=== PATIENT | female | born 1930 | race Caucasian/White ===

== ENCOUNTER 2019-06-29 14:40 | Inpatient (IN) ==
--- NOTE | 2019-06-29 14:58 | Emergency Department Note ---
ED Disposition Clinical Impression: Altered mental status Qualifiers: Altered mental status type: unspecified Qualified Code(s): R41.82 - Altered mental status, unspecified GI bleed Qualifiers: GI bleed type/associated pathology: unspecified gastrointestinal hemorrhage type Qualified Code(s): K92.2 - Gastrointestinal hemorrhage, unspecified Sepsis Qualifiers: Sepsis type: sepsis due to unspecified organism Sepsis acute organ dysfunction status: without acute organ dysfunction Qualified Code(s): A41.9 - Sepsis, unspecified organism Anemia Qualifiers: Anemia type: unspecified type Qualified Code(s): D64.9 - Anemia, unspecified Constipation Qualifiers: Constipation type: unspecified constipation type Qualified Code(s): K59.00 - Constipation, unspecified Disposition: Admitted As Inpatient Condition on Discharge: Fair - Critical Care Critical Care Time: Yes Attestation: On 06/29/19, the high probability of a clinically significant, sudden or life threatening deterioration of the following system(s) required my full and direct attention, intervention and personal management. The time I documented below is in addition to time spent performing reported procedures but includes the following listed in this critical care notation. Total Critical Care Time: 45 Vital system(s) involved:: Circulatory Failure, Central Nervous System, Metabolic Failure, Shock (Hemorrhage) My critical care processes included: Assessment & monitoring of V/S, Initial and Re-exams, Data Review/Interpretation, Coordinating Care, Medication Orders and management, Documentation Medical Decision Making - Xander Inquiry Pt receiving controlled substance: No Vital Signs: 06/29/19 14:39 06/29/19 17:50 06/29/19 19:07 Temperature 98.8 F 98.8 F Temperature Source Oral Oral Pulse Rate 75 Pulse Rate [Right Radial] 96 H 110 H Respiratory Rate 16 18 Blood Pressure 113/56 L Blood Pressure [Right Arm] 118/89 94/55 L Blood Pressure Mean [Right Arm] 98 68 Blood Pressure Source [Right Arm] Automatic Cuff Automatic Cuff Blood Pressure Position [Right Arm] Sitting Sitting 02 Sat by Pulse Oximetry 98 99 Oxygen Delivery Method Room Air Room Air Room Air 06/29/19 19:33 Temperature 98.8 F Temperature Source Oral Pulse Rate Pulse Rate [Right Radial] 57 L Respiratory Rate 19 Blood Pressure Blood Pressure [Right Arm] 95/62 L Blood Pressure Mean [Right Arm] 73 Blood Pressure Source [Right Arm] Automatic Cuff Blood Pressure Position [Right Arm] Supine 02 Sat by Pulse Oximetry 95 Oxygen Delivery Method Room Air - Lab Data Lab results reviewed: Yes: I reviewed the patient's lab results. Lab Results 06/29/19 14:45: WBC 14.7 H, RBC 2.27 L, Hgb 7.8 L*, Hct 24.9 L, MCV 110.1 H, MCH 34.4 H, MCHC 31.2 L, RDW 12.3, Plt Count 146, MPV 9.6, Neut % (Auto) 78.9, Lymph % (Auto) 17.9, [place] % (Auto) 3.0, Eos % (Auto) 0.1, Baso % (Auto) 0.1, Neut # (Auto) 11.6 H, Lymph # (Auto) 2.6, [place] # (Auto) 0.4, Eos # (Auto) 0.0, Baso # (Auto) 0.0 06/29/19 14:45: Sodium 144, Potassium 6.0 H, Chloride 108 H, Carbon Dioxide 19 L , Anion Gap 23.0 H, BUN 79 H, Creatinine 2.43 H, Estimated Creat Clear 13, Estimated GFR 19 L*, Est GFR ( Amer) 23 L, Glucose 209 H, Calcium 9.4, Total Bilirubin 0.4, AST 32, ALT 16, Alkaline Phosphatase 28 L, Troponin I < 0.02, Total Protein 5.4 L, Albumin 2.8 L, Globulin 2.6, Albumin/Globulin Ratio 1.1 06/29/19 14:45: Lactate 7.8 H 06/29/19 16:32: Blood Type A Positive, Antibody Screen Negative, Crossmatch (A HG) See Detail 06/29/19 16:32: PT 11.7, INR 1.13 H 06/29/19 17:00: Urine Color Yellow, Urine Appearance Clear, Urine pH 5.0, Ur Specific [place] 1.025, Urine Protein Negative, Urine Glucose (UA) Negative, Urine Ketones Negative, Urine Blood 2+, Urine Nitrate Negative, Urine Bilirubin Negative, Urine Urobilinogen 0.2, Ur Leukocyte Esterase Negative, Urine RBC 10- 20, Urine WBC 3-5, Ur Squamous Epith Cells 3-5, Urine Bacteria Trace 06/29/19 17:00: Stool Occult Blood Positive A 06/29/19 18:07: Troponin I 0.02 06/29/19 19:06: Sodium 146 H, Potassium 4.1 D, Chloride 111 H, Carbon Dioxide 17 L, Anion Gap 22.1 H, BUN 86 H, Creatinine 2.59 H, Estimated Creat Clear 12, Estimated GFR 17 L*, Est GFR ( Amer) 21 L, Glucose 220 H, Calcium 8.4 L D 06/29/19 19:06: Lactate 7.3 H Result diagrams: 06/29/19 14:45 06/29/19 19:06 Orders (Tests/Meds): ED MEDICATIONS Generic Name Dose Route Start Last Admin Trade Name Freq PRN Reason Stop Dose Admin Acetaminophen 650 mg 06/29/19 20:02 Acetaminophen 325mg Tab PO 07/29/19 20:01 Q4HP PRN As Needed for Fever or Pain Pantoprazole Sodium 80 mg/ 100 mls @ 10 mls/hr 06/29/19 20:02 Sodium Chloride IV 07/02/19 20:01 .Q10H MAGDA Sodium Chloride 250 mls @ 25 mls/hr 06/29/19 20:02 Sod Chlor 0.9% 250ml Bag IV 06/30/19 15:29 .Q10H MAGDA Dextrose/Sodium Chloride 1,000 mls @ 100 mls/hr 06/29/19 20:02 Dextrose 5%-0.45% Nacl Iv Soln IV 07/29/19 20:01 .Q10H MAGDA Sodium Chloride 1,000 mls @ 999 mls/hr 06/29/19 20:02 Sod Chlor 0.9% 1000ml Bag IV 06/29/19 21:02 .Q1H1M MAGDA Insulin Human Lispro 0 unit 06/29/19 20:02 Humalog 100 Units/Ml 3ml Vial (Ssi) SQ 07/29/19 20:01 Q6H [facility] Protocol Ondansetron HCl 4 mg 06/29/19 20:02 Zofran 4mg/2ml Vial IV 07/29/19 20:01 Q8HP PRN Nausea Pantoprazole Sodium 40 mg 06/29/19 20:02 Protonix 40mg Vial IV 06/29/19 20:03 ONCE ONE Sodium Chloride 10 ml 06/29/19 20:02 Sodium Chloride 0.9% 10ml Vial IV 07/29/19 20:01 NEEDED PRN dilute protonix Sodium Chloride 10 ml 06/29/19 20:02 Saline Flush 10ml Syringe IV 07/29/19 20:01 NEEDED PRN Maintain IV Site Discontinued Medications Generic Name Dose Route Start Last Admin Trade Name Chepe PRN Reason Stop Dose Admin Albuterol Sulfate 7.5 mg 06/29/19 16:19 06/29/19 16:58 Albuterol 0.083% 2.5mg/3ml Neb IH 06/29/19 16:20 7.5 mg ONCE ONE Administration Dextrose 50 ml 06/29/19 16:19 06/29/19 18:34 Dextrose 50% 50ml Syringe IVP 06/29/19 16:20 50 ml ONCE ONE Administration Sodium Chloride 1,000 mls @ 999 mls/hr 06/29/19 14:54 06/29/19 14:54 Sod Chlor 0.9% 1000ml Bag IV 06/29/19 15:54 999 mls/hr .Q1H1M ONE Administration Sodium Chloride 250 mls @ 25 mls/hr 06/29/19 15:30 Sod Chlor 0.9% 250ml Bag IV 06/30/19 15:29 .Q10H MAGDA Sodium Chloride 1,000 mls @ 999 mls/hr 06/29/19 18:45 06/29/19 14:54 Sod Chlor 0.9% 1000ml Bag IV 06/29/19 19:45 999 mls/hr .Q1H1M MAGDA Administration Insulin Human Regular 10 unit 06/29/19 16:19 06/29/19 18:34 Humulin R Insulin 100 Units/Ml 10ml Vial IVP 06/29/19 16:20 10 unit ONCE ONE Administration Sodium Polystyrene Sulfonate 15 gm 06/29/19 16:19 06/29/19 18:34 Kayexalate 15gm/60ml Bottle RC 06/29/19 16:20 15 gm ONCE STA Administration ORDERS Category Date Time Status Transfuse RBC's [Red Blood Cells] Stat [facility] 06/29/19 16:32 Results Type and Screen Stat [facility] 06/29/19 16:32 Results Basic Metabolic Panel [facility] 06/30/19 06:00 Ordered Basic Metabolic Panel [facility] 07/01/19 06:00 Ordered Complete Blood Count Auto Diff [facility] 06/30/19 06:00 Ordered Magnesium [facility] 06/30/19 06:00 Ordered Prothrombin Time INR [facility] 06/30/19 06:00 Ordered Troponin I Q6H Lab 06/30/19 04:00 Ordered Blood Culture Stat Micro 06/29/19 14:45 Received ECG Request by /Leticia Routine Y 06/29/19 20:02 Ordered - Physician Consults Physician Consulted: Dr. Scott Time: 17:30 Reason -: Admission Comment/Response: Discussed with Dr. Dudley regarding the patient and plan to get the patient admitted to the floor. - Tissue Perfus/Sepsis Re-Eval Sepsis Re-Evaluation Performed: Yes Date Performed: 06/29/19 Time Performed: 17:00 Altered Mental Status HPI - General Chief Complaint: Altered Mental Status Stated Complaint: AMS Time Seen by Provider: 06/29/19 14:51 Mode of Arrival: EMS Limitations: Altered Mental Status Description of Symptoms (Recalled from ER Triage Doc. by RN): PT BROUGHT IN VIA EMS AFTER FAMILY REPORTS AMS. FAMILY STATES THAT PT NORMALLY GETS OUT OF BED AND DOES FOR HERSELF, BUT THAT PT WASN'T GETTING OUT OF BED THIS AM. DAUGHTER REPORTS THAT PT HAS HAD A HX OF UTI'S AND THIS IS HOW SHE NORMALLY GETS WHEN SHE HAS ONE. PT WAS ABLE TO PROVIDE ME WITH HER NAME AND BDAY UPON REQUEST. - History of Present Illness HPI narrative: 88-year-old female was brought into the emergency department by the EMS for being confused and having altered mental status at home. According to the family members the patient gets confused when she has urinary tract infection. This time it seems to be different. She is not even able to get out of the bed. She was fine until yesterday evening. She is usually able to get out of bed and ambulate well the help of wheel walker. She was not able to do so since this morning. Is not even answering appropriately. She was not talking much. The patient is rolling in the bed and does not answer. Looks very pale and anemic. Patient did have bowel movements but she does not have bowel movements on a daily basis. Usually she is constipated and has bowel movements every 2 to 3 da ys. Her bowel movement was blackish today. The patient had blackish stool most likely due to her iron intake according to the family members. There is no history of head trauma. - Related Data Allergies Allergy/AdvReac Type Severity Reaction Status Date / Time No Known Allergies Allergy Unverified 07/14/17 14:22 [facility] History - Hepatitis A Screen Drug use history?: No High risk sexual behaviors?: No History of sexually transmitted infection?: No Currently employed?: No Childcare worker?: No Do you have indoor plumbing?: Yes Do you have electricity?: Yes Attestation statement:: This patient has been screened for Hepatitis A risk factors. Medical History: Reports:: Cerebrovascular Accident Denies:: Diabetes Mellitus Type 1, Diabetes Mellitus Type 2 - Social History Smoking Status: Never smoker Alcohol Intake: never Occupational Status: retired ROS Obtained: Yes unobtainable due to mental status, Yes other (Unable to get any history from the patient due to altered mental status.) Physical Exam - General General appearance: lethargic, cachectic, other (Pale and anemic patient) - Head Head exam: atraumatic, normocephalic - Eye Eye exam: Present: normal appearance, PERRL, EOMI - ENT ENT exam: Present: normal exam, normal oropharynx - Neck Neck exam: Present: normal inspection, full ROM, trachea midline - Chest Chest inspection: Present: normal inspection, symmetric chest wall rise - Respiratory Respiratory exam: Present: normal lung sounds bilaterally, other (Patient is tachypneic.). Absent: respiratory distress - Cardiovascular Cardiovascular exam: Present: regular rate, normal rhythm, other - Abdominal Exam Abdominal exam: Present: soft, distention (Mildly distended but no acute tenderness.), normal bowel sounds. Absent: tenderness, guarding, rebound - Extremities Exam Extremities exam: Present: normal inspection, full ROM - Back Exam Back exam: Present: normal inspection, full ROM, other (Baseline status of the back) - Neurological Exam Neurological exam: Present: CN II-XII intact, other (No acute neurological deficit. The patient seems weak and confused. Does not answer any questions. He is not conversing. Rolls in bed and seems to be tachypneic) - Skin Skin exam: Present: warm, dry, pallor
[2019-06-29 15:20] LABS: Basophils % 0.1 % (0.1-2.0); Eosinophils % 0.1 % (0.1-12.0); Hematocrit 24.9 % (37.0-47.0); Lymphocytes # 2.6 K/mm3 (0.7-4.5); Lymphocytes % 17.9 % (10-50); Mean Corpuscular HGB Conc 31.2 g/dL (31.8-35.4); Mean Corpuscular Volume 110.1 fl (81-99); Mean Platelet Volume 9.6 fl (7.4-10.4); Monocytes # 0.4 K/mm3 (0.1-1.0); Neutrophils # 11.6 K/mm3 (1.8-7.8); Neutrophils % 78.9 % (37.0-80.0); Platelet Count 146 K/mm3 (142-424); Red Blood Count 2.27 M/mm3 (4.20-5.40); Red Cell Distribution Width 12.3 % (11.5-17.5); White Blood Count 14.7 K/mm3 (4.8-10.8)
[2019-06-29 15:22] LABS: Hemoglobin 7.8 g/dL (12.2-16.2)
[2019-06-29 15:44] LABS: Alanine Aminotransferase 16 U/L (12-78); Albumin Level 2.8 gm/dL (3.4-5.0); Albumin/Globulin Ratio 1.1 (1.1-1.8); Alkaline Phosphatase 28 U/L (46-116); Aspartate Amino Transferase 32 U/L (15-37); Bilirubin,Total 0.4 mg/dL (0.2-1.0); Calcium 9.4 mg/dL (8.5-10.1); Carbon Dioxide 19 mmol/L (21.0-32.0); Chloride 108 mmol/L (98-107); Globulin 2.6 gm/dl (1.3-3.2); Glucose 209 mg/dL (74-106); Sodium 144 mmol/L (136-145); Total Protein,Serum 5.4 gm/dL (6.4-8.2)
[2019-06-29 15:48] LABS: Blood Urea Nitrogen 79 mg/dL (7-18)
[2019-06-29 16:49] LABS: INR 1.13 (0.9-1.1); Prothrombin Time 11.7 seconds (9.4-11.8)
[2019-06-29 17:14] LABS: Microscopic, Urine URINE MICROSCOPIC (MICROSCOPIC)
[2019-06-29 17:25] LABS: Appearance,Urine CLEAR (Clear); Bilirubin,Urine Negative (Negative); Blood, Urine 2+ (Negative); Color,Urine YELLOW (Yellow); Glucose,Urine (UA) Negative (Negative); Ketones,Urine Negative (Negative); Leukocyte Esterase,Urine Negative (Negative); Protein,Urine Negative (Negative); Specific Gravity, Urine 1.025 (1.005-1.030); Urobilinogen,Urine 0.2 EU/dl (0.2)
[2019-06-29 17:47] LABS: Bacteria,Urine Trace /lpf
[2019-06-29 19:45] LABS: Anion Gap 22.1 mEq/L (5-15)
[2019-06-29 20:30] LABS: Calcium 8.4 mg/dL (8.5-10.1)
[2019-06-30 04:33] LABS: Anion Gap 24.4 mEq/L (5-15); Calcium 8.4 mg/dL (8.5-10.1)
[2019-06-30 05:44] LABS: Basophils % 0.2 % (0.1-2.0); Eosinophils # 0.1 K/mm3 (0.0-0.4); Eosinophils % 0.4 % (0.1-12.0); Hematocrit 39.8 % (37.0-47.0); Lymphocytes # 1.8 K/mm3 (0.7-4.5); Lymphocytes % 10.7 % (10-50); Mean Corpuscular HGB Conc 32.7 g/dL (31.8-35.4); Mean Corpuscular Volume 99.6 fl (81-99); Mean Platelet Volume 9.3 fl (7.4-10.4); Monocytes # 1.3 K/mm3 (0.1-1.0); Monocytes % 7.9 % (1.7-9.3); Neutrophils # 13.2 K/mm3 (1.8-7.8); Neutrophils % 80.8 % (37.0-80.0); Platelet Count 88 K/mm3 (142-424); Red Cell Distribution Width 14.8 % (11.5-17.5); White Blood Count 16.3 K/mm3 (4.8-10.8)
[2019-06-30 05:55] LABS: INR 1.05 (0.9-1.1); Prothrombin Time 10.9 seconds (9.4-11.8)
--- NOTE | 2019-06-30 07:45 | Pharmacy Consult Notes ---
[facility] Pharmacy VTE Monitoring - Patient Demographics Admission date: 06/29/19 Report Date: 06/30/19 Time: 07:45 Allergies/Adverse Reactions: Patient Allergies No Known Allergies Allergy (Unverified 07/14/17 14:22) Height: 1.6 m Weight: 51.88 kg Patient Problems: Current Active Problems (This Medical Record has been edited. Action required.) Altered mental status (Acute) GI bleed (Acute) Sepsis (Acute) Anemia (Acute) Constipation (Acute) - VTE Risk Labs: VTE Related Lab Results Hgb 13.0 g/dL (12.2-16.2) D 06/30/19 05:35 Hct 39.8 % (37.0-47.0) 06/30/19 05:35 Plt Count 88 K/mm3 (142-424) L D 06/30/19 05:35 PT 10.9 seconds (9.4-11.8) 06/30/19 05:35 INR 1.05 (0.9-1.1) 06/30/19 05:35 BUN 95 mg/dL (7-18) H 06/30/19 04:07 Creatinine 2.79 mg/dL (0.55-1.02) H 06/30/19 04:07 Estimated Creat Clear 12 mL/min (50-200) 06/30/19 04:07 Was VTE Risk Assessment Performed: Yes VTE Score: 3 VTE Risk Level: Low Risk Clinical Trial Participant: No - Prophylaxis VTE Prophylaxis Ordered?: Yes Types of VTE Prophylaxis: TEDS Knee High
--- NOTE | 2019-06-30 07:57 | History & Physical Report ---
*Admission Date: 06/29/19 *Chief complaint: GI bleed *History of present illness: 88-year-old female with history of TIA and hypertension presented to the emergency department after she was found to be confused early yesterday morning. Her noticed that around 3:30 AM she did not seem to be acting like herself. He contacted her daughter. Her daughter came and assessed her and noticed that not only was the patient confused but she began having frequent black stools which is atypical for the patient. While she does take iron for chronic anemia she usually has a bowel movement every 2 to 3 days. The daughter recognized that the stool appeared as if there was blood in it and also "smelled as if there was blood in it". That was when the patient was brought to the hospital. Patient underwent evaluation and was found to be anemic. She was admitted with a diagnosis of an upper GI bleed and transfused 2 units of packed red blood cells. Overnight patient had a robust response to the 2 units of packed red blood cells with hemoglobin rising from 7.8 to above 13. Patient has been on a Protonix drip since admission. This morning she remains confused and minimally interactive with both myself and family. History is taken completely from the family. [facility] History I have reviewed the patient's past medical history: Yes Medical History: Reports:: Cerebrovascular Accident, Hyperlipidemia, Hypertension Denies:: Cancer, Diabetes Mellitus Type 1, Diabetes Mellitus Type 2, MRSA *Have you ever received a pneumonia vaccine?: Yes *Have you received a flu vaccine this season?: No Other Medical History: Reports: Anemia, Arthritis, Cataracts Other Surgeries: Yes: Hysterectomy-Total Amputation: No Fractures: No - *Social History Educational Level: Completed High School Smoking Status: Never smoker Alcohol Intake: never *Occupational Status:: retired Household Members: spouse *Travel in the last 8 weeks: None Family Hx:: Cancer, Stroke Review of Systems - Review of Systems Review of systems:: unable to obtain - Constitutional Denies body ache(s), Denies chills Meds Allergies Allergy/AdvReac Type Severity Reaction Status Date / Time No Known Allergies Allergy Unverified 07/14/17 14:22 Exam Vital signs and Labs for Last 24 Hours: Temp Pulse Resp BP Pulse Ox 98.4 F 117 H 24 131/84 94 L 06/30/19 05:00 06/30/19 05:00 06/30/19 05:00 06/30/19 05:00 06/30/19 02:35 Laboratory Results - last 24 hr 06/29/19 14:45: WBC 14.7 H, RBC 2.27 L, Hgb 7.8 L*, Hct 24.9 L, MCV 110.1 H, MCH 34.4 H, MCHC 31.2 L, RDW 12.3, Plt Count 146, MPV 9.6, Neut % (Auto) 78.9, Lymph % (Auto) 17.9, [place] % (Auto) 3.0, Eos % (Auto) 0.1, Baso % (Auto) 0.1, Neut # (Auto) 11.6 H, Lymph # (Auto) 2.6, [place] # (Auto) 0.4, Eos # (Auto) 0.0, Baso # (Auto) 0.0 06/29/19 14:45: Sodium 144, Potassium 6.0 H, Chloride 108 H, Carbon Dioxide 19 L , Anion Gap 23.0 H, BUN 79 H, Creatinine 2.43 H, Estimated Creat Clear 13, Estim ated GFR 19 L*, Est GFR ( Amer) 23 L, Glucose 209 H, Calcium 9.4, Total Bilirubin 0.4, AST 32, ALT 16, Alkaline Phosphatase 28 L, Troponin I < 0.02, Total Protein 5.4 L, Albumin 2.8 L, Globulin 2.6, Albumin/Globulin Ratio 1.1 06/29/19 14:45: Lactate 7.8 H 06/29/19 16:32: Blood Type A Positive, Antibody Screen Negative, Crossmatch (AHG) See Detail 06/29/19 16:32: PT 11.7, INR 1.13 H 06/29/19 17:00: Urine Color Yellow, Urine Appearance Clear, Urine pH 5.0, Ur Specific [place] 1.025, Urine Protein Negative, Urine Glucose (UA) Negative, Urine Ketones Negative, Urine Blood 2+, Urine Nitrate Negative, Urine Bilirubin Negative, Urine Urobilinogen 0.2, Ur Leukocyte Esterase Negative, Urine RBC 10- 20, Urine WBC 3-5, Ur Squamous Epith Cells 3-5, Urine Bacteria Trace 06/29/19 17:00: Stool Occult Blood Positive A 06/29/19 18:07: Troponin I 0.02 06/29/19 19:06: Sodium 146 H, Potassium 4.1 D, Chloride 111 H, Carbon Dioxide 17 L, Anion Gap 22.1 H, BUN 86 H, Creatinine 2.59 H, Estimated Creat Clear 12, Estimated GFR 17 L*, Est GFR ( Amer) 21 L, Glucose 220 H, Calcium 8.4 L D 06/29/19 19:06: Lactate 7.3 H 06/29/19 21:44: Troponin I 0.07 H 06/29/19 21:44: Lactate 5.8 H 06/30/19 00:17: POC Glucose 155 H 06/30/19 04:07: Troponin I 0.20 H 06/30/19 04:07: Sodium 145, Potassium 4.4, Chloride 110 H, Carbon Dioxide 15 L, Anion Gap 24.4 H, BUN 95 H, Creatinine 2.79 H, Estimated Creat Clear 12, Estimated GFR 16 L*, Est GFR ( Amer) 19 L*, Glucose 177 H, Calcium 8.4 L, Magnesium 1.6 06/30/19 05:35: WBC 16.3 H, RBC 4.00 L D, Hgb 13.0 D, Hct 39.8, MCV 99.6 H, MCH 32.6 H, MCHC 32.7, RDW 14.8, Plt Count 88 L D, MPV 9.3, Neut % (Auto) 80.8 H, Lymph % (Auto) 10.7, [place] % (Auto) 7.9, Eos % (Auto) 0.4, Baso % (Auto) 0.2, Neut # (Auto) 13.2 H, Lymph # (Auto) 1.8, [place] # (Auto) 1.3 H, Eos # (Auto) 0.1, Baso # (Auto) 0.0 06/30/19 05:35: PT 10.9, INR 1.05 I & O for Last 24 hours: Intake & Output 06/27/19 06/28/19 06/29/19 06/30/19 11:59 11:59 11:59 11:59 Intake Total 397 / 397 Balance 397 / 397 Weight 114 lb 6 oz Narrative: Patient is not in any distress but is laying on her left side. She does not respond to my voice. When speaking with her daughter the patient did become a little more alert but could not communicate with either myself or her daughter. HEENT exam is grossly normal. Lungs are clear. Heart has a regular rate and rhythm. Abdomen has mild epigastric tenderness. Bowel sounds are present. Lower extremities have trace edema. Neurologically patient is difficult to assess. She will make eye contact but does not speak. She is witnessed moving her right arm and leg but was difficult to turn. Assessment and Plan (1) GI bleed Current visit: Yes Status: Acute Qualifiers: GI bleed type/associated pathology: unspecified gastrointestinal hemorrhage type Qualified Code(s): K92.2 - Gastrointestinal hemorrhage, unspecified Category: Medical Code(s): K92.2 - Gastrointestinal hemorrhage, unspecified (2) Anemia due to blood loss, acute Current visit: Yes Status: Acute Category: Medical Code(s): D62 - Acute posthemorrhagic anemia (3) History of stroke Current visit: Yes Status: Acute Category: Medical Code(s): Z86.73 - Personal history of transient ischemic attack (TIA), and cerebral infarction without residual deficits - Assessment and plan all Dx Assessment and Plan for all problems:: 1. Continue Protonix drip. Surgical consult. Patient will need EGD. At present she is stable and I plan on repeating her H&H every 6 hours for today 2. Continue IV fluids.
[2019-06-30 08:06] LABS: Lymphocytes % 18 % (10-50); Monocytes % 9 % (2-9); Neutrophils % 65 % (42-76); RBC Morphology Normal; Total Cells Counted 100
[2019-06-30 11:23] LABS: Basophils % 0.4 % (0.1-2.0); Eosinophils # 0.1 K/mm3 (0.0-0.4); Eosinophils % 0.6 % (0.1-12.0); Hematocrit 42.1 % (37.0-47.0); Hemoglobin 14.1 g/dL (12.2-16.2); Lymphocytes # 1.5 K/mm3 (0.7-4.5); Lymphocytes % 17.3 % (10-50); Mean Corpuscular HGB Conc 33.6 g/dL (31.8-35.4); Mean Corpuscular Volume 98.8 fl (81-99); Mean Platelet Volume 9.4 fl (7.4-10.4); Monocytes # 0.9 K/mm3 (0.1-1.0); Monocytes % 9.9 % (1.7-9.3); Neutrophils # 6.2 K/mm3 (1.8-7.8); Neutrophils % 71.9 % (37.0-80.0); Platelet Count 96 K/mm3 (142-424); Red Blood Count 4.26 M/mm3 (4.20-5.40); Red Cell Distribution Width 15.3 % (11.5-17.5); White Blood Count 8.6 K/mm3 (4.8-10.8)
--- NOTE | 2019-06-30 13:52 | Consult Report ---
*Admission Date: 06/29/19 *Reason for consult:: Upper gastrointestinal hemorrhage *History of present illness: This is an 88-year-old female seen in consultation from Dr. Zhang for evaluation regarding upper gastrointestinal hemorrhage. Please see truncated HPI from admission H&P forwarded below. From H&P: 88-year-old female with history of TIA and hypertension presented to the emergency department after she was found to be confused early yesterday morning...she began having frequent black stools which is atypical for the patient...the patient was brought to the hospital...underwent evaluation and was found to be anemic. She was admitted with a diagnosis of an upper GI bleed and transfused 2 units of packed red blood cells. Overnight patient had a robust response to the 2 units of packed red blood cells with hemoglobin rising from 7.8 to above 13. Patient has been on a Protonix drip since admission. Review of Systems - Constitutional Denies fever(s) - Eyes Denies discharge - *Gastrointestinal Reports black, tarry stools - *Neurologic Reports confusion [facility] History Medical History: Reports:: Cerebrovascular Accident, Hyperlipidemia, Hypertension Denies:: Cancer, Diabetes Mellitus Type 1, Diabetes Mellitus Type 2, MRSA *Have you ever received a pneumonia vaccine?: Yes *Have you received a flu vaccine this season?: No Other Medical History: Reports: Anemia, Arthritis, Cataracts Other Surgeries: Yes: Hysterectomy-Total Amputation: No Fractures: No - *Social History Educational Level: Completed High School Smoking Status: Never smoker Alcohol Intake: never *Occupational Status:: retired Household Members: spouse *Travel in the last 8 weeks: None Family Hx:: Cancer, Stroke Meds Home Medications Medication Instructions Recorded Confirmed Type Atorvastatin Calcium [Atorvastatin 10 mg PO HS 06/30/19 06/30/19 History 10mg Tab] Citalopram Hydrobromide 20 mg PO DAILY 06/30/19 06/30/19 History [Citalopram HBr] Clopidogrel Bisulfate [Plavix 75mg 75 mg PO DAILY 06/30/19 06/30/19 History Tab] carvediloL [Carvedilol 25mg Tab] 25 mg PO BID 06/30/19 06/30/19 History lisinopriL [Lisinopril 10mg Tab] 10 mg PO DAILY 06/30/19 06/30/19 History Allergies Allergy/AdvReac Type Severity Reaction Status Date / Time No Known Allergies Allergy Unverified 07/14/17 14:22 Exam Vital signs and Labs for Last 24 Hours: Temp Pulse Resp BP Pulse Ox 97.1 F L 83 20 113/65 92 L 06/30/19 11:15 06/30/19 11:15 06/30/19 11:15 06/30/19 11:15 06/30/19 11:15 Laboratory Results - last 24 hr 06/29/19 14:45: WBC 14.7 H, RBC 2.27 L, Hgb 7.8 L*, Hct 24.9 L, MCV 110.1 H, MCH 34.4 H, MCHC 31.2 L, RDW 12.3, Plt Count 146, MPV 9.6, Neut % (Auto) 78.9, Lymph % (Auto) 17.9, [place] % (Auto) 3.0, Eos % (Auto) 0.1, Baso % (Auto) 0.1, Neut # (Auto) 11.6 H, Lymph # (Auto) 2.6, [place] # (Auto) 0.4, Eos # (Auto) 0.0, Baso # (Auto) 0.0 06/29/19 14:45: Sodium 144, Potassium 6.0 H, Chloride 108 H, Carbon Dioxide 19 L , Anion Gap 23.0 H, BUN 79 H, Creatinine 2.43 H, Estimated Creat Clear 13, Estimated GFR 19 L*, Est GFR ( Amer) 23 L, Glucose 209 H, Calcium 9.4, Total Bilirubin 0.4, AST 32, ALT 16, Alkaline Phosphatase 28 L, Troponin I < 0.0 2, Total Protein 5.4 L, Albumin 2.8 L, Globulin 2.6, Albumin/Globulin Ratio 1.1 06/29/19 14:45: Lactate 7.8 H 06/29/19 16:32: Blood Type A Positive, Antibody Screen Negative, Crossmatch (AHG) See Detail 06/29/19 16:32: PT 11.7, INR 1.13 H 06/29/19 17:00: Urine Color Yellow, Urine Appearance Clear, Urine pH 5.0, Ur Specific [place] 1.025, Urine Protein Negative, Urine Glucose (UA) Negative, Urine Ketones Negative, Urine Blood 2+, Urine Nitrate Negative, Urine Bilirubin Negative, Urine Urobilinogen 0.2, Ur Leukocyte Esterase Negative, Urine RBC 10- 20, Urine WBC 3-5, Ur Squamous Epith Cells 3-5, Urine Bacteria Trace 06/29/19 17:00: Stool Occult Blood Positive A 06/29/19 18:07: Troponin I 0.02 06/29/19 19:06: Sodium 146 H, Potassium 4.1 D, Chloride 111 H, Carbon Dioxide 17 L, Anion Gap 22.1 H, BUN 86 H, Creatinine 2.59 H, Estimated Creat Clear 12, Estimated GFR 17 L*, Est GFR ( Amer) 21 L, Glucose 220 H, Calcium 8.4 L D 06/29/19 19:06: Lactate 7.3 H 06/29/19 21:44: Troponin I 0.07 H 06/29/19 21:44: Lactate 5.8 H 06/30/19 00:17: POC Glucose 155 H 06/30/19 04:07: Troponin I 0.20 H 06/30/19 04:07: Sodium 145, Potassium 4.4, Chloride 110 H, Carbon Dioxide 15 L, Anion Gap 24.4 H, BUN 95 H, Creatinine 2.79 H, Estimated Creat Clear 12, Estimated GFR 16 L*, Est GFR ( Amer) 19 L*, Glucose 177 H, Calcium 8.4 L, Magnesium 1.6 06/30/19 05:35: WBC 16.3 H, RBC 4.00 L D, Hgb 13.0 D, Hct 39.8, MCV 99.6 H, MCH 32.6 H, MCHC 32.7, RDW 14.8, Plt Count 88 L D, MPV 9.3, Neut % (Auto) 80.8 H, Lymph % (Auto) 10.7, [place] % (Auto) 7.9, Eos % (Auto) 0.4, Baso % (Auto) 0.2, Neut # (Auto) 13.2 H, Lymph # (Auto) 1.8, [place] # (Auto) 1.3 H, Eos # (Auto) 0.1, Baso # (Auto) 0.0, Total Counted 100, Neutrophils % (Manual) 65, Band Neutrophils % 6.0, Lymphocytes % (Manual) 18, Monocytes % (Manual) 9, Metamye locytes % 2.0 H, Platelet Estimate Moderate decrease, RBC Morphology Normal 06/30/19 05:35: PT 10.9, INR 1.05 06/30/19 11:10: WBC 8.6 D, RBC 4.26, Hgb 14.1, Hct 42.1, MCV 98.8, MCH 33.2 H, MCHC 33.6, RDW 15.3, Plt Count 96 L, MPV 9.4, Neut % (Auto) 71.9, Lymph % (Auto) 17.3, [place] % (Auto) 9.9 H, Eos % (Auto) 0.6, Baso % (Auto) 0.4, Neut # (Auto) 6.2, Lymph # (Auto) 1.5, [place] # (Auto) 0.9, Eos # (Auto) 0.1, Baso # (Auto) 0.0 06/30/19 11:10: Troponin I 0.22 H I & O for Last 24 hours: Intake & Output 06/28/19 06/29/19 06/30/19 07/01/19 11:59 11:59 11:59 11:59 Intake Total 397 / 397 0 / 0 Balance 397 / 397 0 / 0 Weight 114 lb 6 oz - Constitutional no acute distress - *Routine Respiratory Exam Absent: respiratory distress - *Routine Cardiovascular Exam Present: RRR - *Routine Neurological Exam Absent: oriented X3 Results - Labs 06/30/19 11:10 06/30/19 04:07 Laboratory Results - last 24 hr 06/29/19 14:45: WBC 14.7 H, RBC 2.27 L, Hgb 7.8 L*, Hct 24.9 L, MCV 110.1 H, MCH 34.4 H, MCHC 31.2 L, RDW 12.3, Plt Count 146, MPV 9.6, Neut % (Auto) 78.9, Lymph % (Auto) 17.9, [place] % (Auto) 3.0, Eos % (Auto) 0.1, Baso % (Auto) 0.1, Neut # (Auto) 11.6 H, Lymph # (Auto) 2.6, [place] # (Auto) 0.4, Eos # (Auto) 0.0, Baso # (Auto) 0.0 06/29/19 14:45: Sodium 144, Potassium 6.0 H, Chloride 108 H, Carbon Dioxide 19 L , Anion Gap 23.0 H, BUN 79 H, Creatinine 2.43 H, Estimated Creat Clear 13, Estimated GFR 19 L*, Est GFR ( Amer) 23 L, Glucose 209 H, Calcium 9.4, Total Bilirubin 0.4, AST 32, ALT 16, Alkaline Phosphatase 28 L, Troponin I < 0.02, Total Protein 5.4 L, Albumin 2.8 L, Globulin 2.6, Albumin/Globulin Ratio 1.1 06/29/19 14:45: Lactate 7.8 H 06/29/19 16:32: Blood Type A Positive, Antibody Screen Negative, Crossmatch (AHG) See Detail 06/29/19 16:32: PT 11.7, INR 1.13 H 06/29/19 17:00: Urine Color Yellow, Urine Appearance Clear, Urine pH 5.0, Ur Specific [place] 1.025, Urine Protein Negative, Urine Glucose (UA) Negative, Urine Ketones Negative, Urine Blood 2+, Urine Nitrate Negative, Urine Bilirubin Negative, Urine Urobilinogen 0.2, Ur Leukocyte Esterase Negative, Urine RBC 10- 20, Urine WBC 3-5, Ur Squamous Epith Cells 3-5, Urine Bacteria Trace 06/29/19 17:00: Stool Occult Blood Positive A 06/29/19 18:07: Troponin I 0.02 06/29/19 19:06: Sodium 146 H, Potassium 4.1 D, Chloride 111 H, Carbon Dioxide 17 L, Anion Gap 22.1 H, BUN 86 H, Creatinine 2.59 H, Estimated Creat Clear 12, Estimated GFR 17 L*, Est GFR ( Amer) 21 L, Glucose 220 H, Calcium 8.4 L D 06/29/19 19:06: Lactate 7.3 H 06/29/19 21:44: Troponin I 0.07 H 06/29/19 21:44: Lactate 5.8 H 06/30/19 00:17: POC Glucose 155 H 06/30/19 04:07: Troponin I 0.20 H 06/30/19 04:07: Sodium 145, Potassium 4.4, Chloride 110 H, Carbon Dioxide 15 L, Anion Gap 24.4 H, BUN 95 H, Creatinine 2.79 H, Estimated Creat Clear 12, Estimated GFR 16 L*, Est GFR ( Amer) 19 L*, Glucose 177 H, Calcium 8.4 L, Magnesium 1.6 06/30/19 05:35: WBC 16.3 H, RBC 4.00 L D, Hgb 13.0 D, Hct 39.8, MCV 99.6 H, MCH 32.6 H, MCHC 32.7, RDW 14.8, Plt Count 88 L D, MPV 9.3, Neut % (Auto) 80.8 H, Lymph % (Auto) 10.7, [place] % (Auto) 7.9, Eos % (Auto) 0.4, Baso % (Auto) 0.2, Neut # (Auto) 13.2 H, Lymph # (Auto) 1.8, [place] # (Auto) 1.3 H, Eos # (Auto) 0.1, Baso # (Auto) 0.0, Total Counted 100, Neutrophils % (Manual) 65, Band Neutrophils % 6.0, Lymphocytes % (Manual) 18, Monocytes % (Manual) 9, Metamyelocytes % 2.0 H, Platelet Estimate Moderate decrease, RBC Morphology Normal 06/30/19 05:35: PT 10.9, INR 1.05 06/30/19 11:10: WBC 8.6 D, RBC 4.26, Hgb 14.1, Hct 42.1, MCV 98.8, MCH 33.2 H, MCHC 33.6, RDW 15.3, Plt Count 96 L, MPV 9.4, Neut % (Auto) 71.9, Lymph % (Auto) 17.3, [place] % (Auto) 9.9 H, Eos % (Auto) 0.6, Baso % (Auto) 0.4, Neut # (Auto) 6.2, Lymph # (Auto) 1.5, [place] # (Auto) 0.9, Eos # (Auto) 0.1, Baso # (Auto) 0.0 06/30/19 11:10: Troponin I 0.22 H Assessment and Plan (1) GI bleed Current visit: Yes Status: Acute Qualifiers: GI bleed type/associated pathology: unspecified gastrointestinal hemorrhage type Qualified Code(s): K92.2 - Gastrointestinal hemorrhage, unspecified Category: Medical Code(s): K92.2 - Gastrointestinal hemorrhage, unspecified The patient has multiple comorbid conditions. She is currently stable with no definitive evidence of ongoing hemorrhage. I have had a long discussion with the patient's and her daughter concerning the risks and benefits of endoscopic evaluation. The family wishes to "hold off for now". They state that they may reconsider if she develops evidence of active/severe hemorrhage. She will continue her proton pump inhibitor and her Plavix will continue to be held for now. Serial hemoglobin/hematocrit ongoing. (2) Anemia due to blood loss, acute Current visit: Yes Status: Acute Category: Medical Code(s): D62 - Acute posthemorrhagic anemia (3) History of stroke Current visit: Yes Status: Acute Category: Medical Code(s): Z86.73 - Personal history of transient ischemic attack (TIA), and cerebral infarction without residual deficits
[2019-06-30 17:22] LABS: Basophils % 0.4 % (0.1-2.0); Eosinophils % 0.5 % (0.1-12.0); Hematocrit 39.8 % (37.0-47.0); Lymphocytes # 1.6 K/mm3 (0.7-4.5); Lymphocytes % 20.2 % (10-50); Mean Corpuscular HGB Conc 32.7 g/dL (31.8-35.4); Mean Corpuscular Volume 98.4 fl (81-99); Mean Platelet Volume 9.5 fl (7.4-10.4); Monocytes # 1.1 K/mm3 (0.1-1.0); Monocytes % 13.8 % (1.7-9.3); Neutrophils # 5.1 K/mm3 (1.8-7.8); Neutrophils % 65.2 % (37.0-80.0); Platelet Count 113 K/mm3 (142-424); Red Blood Count 4.04 M/mm3 (4.20-5.40); Red Cell Distribution Width 15.5 % (11.5-17.5); White Blood Count 7.8 K/mm3 (4.8-10.8)
[2019-06-30 23:22] LABS: Basophils % 0.2 % (0.1-2.0); Eosinophils % 0.5 % (0.1-12.0); Hematocrit 37.3 % (37.0-47.0); Hemoglobin 12.6 g/dL (12.2-16.2); Lymphocytes # 1.1 K/mm3 (0.7-4.5); Lymphocytes % 20.3 % (10-50); Mean Corpuscular HGB Conc 33.7 g/dL (31.8-35.4); Mean Corpuscular Volume 98.9 fl (81-99); Mean Platelet Volume 9.9 fl (7.4-10.4); Monocytes # 0.9 K/mm3 (0.1-1.0); Monocytes % 15.5 % (1.7-9.3); Neutrophils # 3.5 K/mm3 (1.8-7.8); Neutrophils % 63.5 % (37.0-80.0); Platelet Count 85 K/mm3 (142-424); Red Blood Count 3.77 M/mm3 (4.20-5.40); Red Cell Distribution Width 15.5 % (11.5-17.5); White Blood Count 5.6 K/mm3 (4.8-10.8)
[2019-07-01 06:58] LABS: Anion Gap 20.5 mEq/L (5-15); Basophils % 0.2 % (0.1-2.0); Calcium 7.7 mg/dL (8.5-10.1); Hematocrit 35.3 % (37.0-47.0); Hemoglobin 11.7 g/dL (12.2-16.2); Lymphocytes # 0.8 K/mm3 (0.7-4.5); Mean Corpuscular HGB Conc 33.2 g/dL (31.8-35.4); Mean Corpuscular Volume 99.2 fl (81-99); Mean Platelet Volume 9.6 fl (7.4-10.4); Monocytes # 0.5 K/mm3 (0.1-1.0); Monocytes % 13.2 % (1.7-9.3); Neutrophils # 2.6 K/mm3 (1.8-7.8); Neutrophils % 66.6 % (37.0-80.0); Platelet Count 95 K/mm3 (142-424); Red Blood Count 3.56 M/mm3 (4.20-5.40); Red Cell Distribution Width 15.6 % (11.5-17.5); White Blood Count 3.9 K/mm3 (4.8-10.8)
--- NOTE | 2019-07-01 06:58 | Progress Note ---
Subjective Narrative: Resting. Per nursing report she has had no additional melena over the past shift. Exam Vital signs and Labs for Last 24 Hours: Temp Pulse Resp BP Pulse Ox 98.4 F 127 H 18 130/77 96 07/01/19 04:00 07/01/19 04:00 07/01/19 04:00 07/01/19 04:00 07/01/19 04:00 Laboratory Results - last 24 hr 06/30/19 05:35: Total Counted 100, Neutrophils % (Manual) 65, Band Neutrophils % 6.0, Lymphocytes % (Manual) 18, Monocytes % (Manual) 9, Metamyelocytes % 2.0 H, Platelet Estimate Moderate decrease, RBC Morphology Normal 06/30/19 11:10: WBC 8.6 D, RBC 4.26, Hgb 14.1, Hct 42.1, MCV 98.8, MCH 33.2 H, MCHC 33.6, RDW 15.3, Plt Count 96 L, MPV 9.4, Neut % (Auto) 71.9, Lymph % (Auto) 17.3, [place] % (Auto) 9.9 H, Eos % (Auto) 0.6, Baso % (Auto) 0.4, Neut # (Auto) 6.2, Lymph # (Auto) 1.5, [place] # (Auto) 0.9, Eos # (Auto) 0.1, Baso # (Auto) 0.0 06/30/19 11:10: Troponin I 0.22 H 06/30/19 11:18: POC Glucose 243 H 06/30/19 16:41: POC Glucose 179 H 06/30/19 17:15: WBC 7.8, RBC 4.04 L, Hgb 13.0, Hct 39.8, MCV 98.4, MCH 32.2 H, MCHC 32.7, RDW 15.5, Plt Count 113 L, MPV 9.5, Neut % (Auto) 65.2, Lymph % (Auto) 20.2, [place] % (Auto) 13.8 H, Eos % (Auto) 0.5, Baso % (Auto) 0.4, Neut # (Auto) 5.1, Lymph # (Auto) 1.6, [place] # (Auto) 1.1 H, Eos # (Auto) 0.0, Baso # (Auto) 0.0 06/30/19 20:20: POC Glucose 211 H 06/30/19 23:10: WBC 5.6 D, RBC 3.77 L, Hgb 12.6, Hct 37.3, MCV 98.9, MCH 33.4 H , MCHC 33.7, RDW 15.5, Plt Count 85 L, MPV 9.9, Neut % (Auto) 63.5, Lymph % (Auto) 20.3, [place] % (Auto) 15.5 H, Eos % (Auto) 0.5, Baso % (Auto) 0.2, Neut # (Auto) 3.5, Lymph # (Auto) 1.1, [place] # (Auto) 0.9, Eos # (Auto) 0.0, Baso # (Auto) 0.0 07/01/19 06:28: POC Glucose 233 H I & O for Last 24 hours: Intake & Output 06/28/19 06/29/19 06/30/19 07/01/19 11:59 11:59 11:59 11:59 Intake Total 397 / 397 883 / 883 Output Total 700 / 700 Balance 397 / 397 183 / 183 Weight 114 lb 6 oz 114 lb 6 oz - Constitutional no acute distress - *Routine Respiratory Exam Absent: respiratory distress - *Routine Cardiovascular Exam Present: tachycardia Progress Note: A&P (1) GI bleed Status: Acute Assessment and plan: Currently resting with no definitive evidence of ongoing hemorrhage. The patient's family remains consistent in their wishes for her to not undergo any procedure requiring sedation. Although she has had a slight decline in her hemoglobin it remains "higher than expected" status post a 2 unit transfusion. Continue ongoing monitoring with serial hemoglobin/hematocrit (timing of serial hemoglobin/hematocrit likely be extended) Diet as per primary service Current Visit: Yes (2) Anemia due to blood loss, acute Status: Acute Current Visit: Yes (3) History of stroke Status: Acute Current Visit: Yes
--- NOTE | 2019-07-01 07:28 | Progress Note ---
Internal Medicine - PN: Subj *Date: 07/01/19 *Time: 07:26 Interval history: Patient seems to be doing better according to daughter who is at bedside this morning. Patient has been a little more alert. She is not made any attempts to speak but communicates through hand gestures. Hemoglobin has trended down although very slowly. Staff and daughter report that stools are not as dark in appearance as they were yesterday. Exam Vital signs and Labs for Last 24 Hours: Temp Pulse Resp BP Pulse Ox 98.4 F 127 H 18 130/77 96 07/01/19 04:00 07/01/19 04:00 07/01/19 04:00 07/01/19 04:00 07/01/19 04:00 Laboratory Results - last 24 hr 06/30/19 05:35: Total Counted 100, Neutrophils % (Manual) 65, Band Neutrophils % 6.0, Lymphocytes % (Manual) 18, Monocytes % (Manual) 9, Metamyelocytes % 2.0 H, Platelet Estimate Moderate decrease, RBC Morphology Normal 06/30/19 11:10: WBC 8.6 D, RBC 4.26, Hgb 14.1, Hct 42.1, MCV 98.8, MCH 33.2 H, MCHC 33.6, RDW 15.3, Plt Count 96 L, MPV 9.4, Neut % (Auto) 71.9, Lymph % (Auto) 17.3, [place] % (Auto) 9.9 H, Eos % (Auto) 0.6, Baso % (Auto) 0.4, Neut # (Auto) 6.2, Lymph # (Auto) 1.5, [place] # (Auto) 0.9, Eos # (Auto) 0.1, Baso # (Auto) 0.0 06/30/19 11:10: Troponin I 0.22 H 06/30/19 11:18: POC Glucose 243 H 06/30/19 16:41: POC Glucose 179 H 06/30/19 17:15: WBC 7.8, RBC 4.04 L, Hgb 13.0, Hct 39.8, MCV 98.4, MCH 32.2 H, MCHC 32.7, RDW 15.5, Plt Count 113 L, MPV 9.5, Neut % (Auto) 65.2, Lymph % (Auto) 20.2, [place] % (Auto) 13.8 H, Eos % (Auto) 0.5, Baso % (Auto) 0.4, Neut # (Auto) 5.1, Lymph # (Auto) 1.6, [place] # (Auto) 1.1 H, Eos # (Auto) 0.0, Baso # (Auto) 0.0 06/30/19 20:20: POC Glucose 211 H 06/30/19 23:10: WBC 5.6 D, RBC 3.77 L, Hgb 12.6, Hct 37.3, MCV 98.9, MCH 33.4 H , MCHC 33.7, RDW 15.5, Plt Count 85 L, MPV 9.9, Neut % (Auto) 63.5, Lymph % (Auto) 20.3, [place] % (Auto) 15.5 H, Eos % (Auto) 0.5, Baso % (Auto) 0.2, Neut # (Auto) 3.5, Lymph # (Auto) 1.1, [place] # (Auto) 0.9, Eos # (Auto) 0.0, Baso # (Auto) 0.0 07/01/19 06:28: POC Glucose 233 H 07/01/19 06:33: Sodium 141, Potassium 3.5 D, Chloride 110 H, Carbon Dioxide 14 L, Anion Gap 20.5 H, BUN 111 H*, Creatinine 3.42 H, Estimated Creat Clear 9, Estimated GFR 13 L*, Est GFR ( Amer) 15 L* D, Glucose 237 H, Calcium 7.7 L 07/01/19 06:33: WBC 3.9 L D, RBC 3.56 L, Hgb 11.7 L, Hct 35.3 L, MCV 99.2 H, MCH 32.9 H, MCHC 33.2, RDW 15.6, Plt Count 95 L, MPV 9.6, Neut % (Auto) 66.6, Lymph % (Auto) 20.0, [place] % (Auto) 13.2 H, Eos % (Auto) 0.0 L, Baso % (Auto) 0.2, Neut # (Auto) 2.6, Lymph # (Auto) 0.8, [place] # (Auto) 0.5, Eos # (Auto) 0.0, Baso # (Auto) 0.0 I & O for Last 24 hours: Intake & Output 06/28/19 06/29/19 06/30/19 07/01/19 11:59 11:59 11:59 11:59 Intake Total 397 / 397 1938 / 1938 Output Total 700 / 700 Balance 397 / 397 1238 / 1238 Weight 114 lb 6 oz 114 lb 6 oz Narrative: Patient continues to lay on her left side. She is witnessed moving both arms and both legs. Lungs are clear. Heart has a regular rate and rhythm. She makes no attempt to speak. Assessment and Plan (1) GI bleed Current visit: Yes Status: Acute Qualifiers: GI bleed type/associated pathology: unspecified gastrointestinal hemorrhage type Qualified Code(s): K92.2 - Gastrointestinal hemorrhage, unspecified Category: Medical Code(s): K92.2 - Gastrointestinal hemorrhage, unspecified (2) Anemia due to blood loss, acute Current visit: Yes Status: Acute Category: Medical Code(s): D62 - Acute posthemorrhagic anemia (3) History of stroke Current visit: Yes Status: Acute Category: Medical Code(s): Z86.73 - Personal history of transient ischemic attack (TIA), and cerebral infarction without residual deficits (4) Acute kidney injury Current visit: Yes Status: Acute Category: Medical Code(s): N17.9 - Acute kidney failure, unspecified - Assessment and plan all Dx Assessment and Plan for all problems:: Continue serial CBCs. Swallowing evaluation today Continue IV fluids for acute kidney injury PT consult today as patient is going to need assisted placement
--- OUTSIDE RECORDS SUMMARY | 2019-07-01 10:53 | External Medical Summary | Continuity of Care Document ---
:1930 Author Organization [facility] Address [address] [place] [address] Phone Care Team Providers Name Role Phone Vicente Primary Care Provider Mike Enriquez Attending Provider Rico Dudley Attending Provider Allergies, Adverse Reactions, Alerts No known allergies. Medications Medication Status Dose Units Route Sig Qty Days Start End Instruct ions Date Date Atorvastatin Active 10 MG Oral At June Calcium bedtime 2018 nightly 7:45am Carvedilol Active 25 MG Oral Twice a June 7:45am Citalopram Active 20 MG Oral Daily June Hydrobromide 2018 7:45am Lisinopril Active 10 MG Oral Daily June 30, 2019 7:45am Clopidogrel Active 75 MG Oral Daily June Bisulf2018 7:45am Problems Active Problems Medical Problem Onset Date Status Acute kidney injury Active GI bleed Active Anemia Active Laceration of face Active Sepsis Active Altered mental status Active Anemia due to blood loss, acute Active History of stroke Active Constipation Active Fall Active Advance Directives Advance Directive Response Recorded Date/Time Living Will Yes June 29, 2019 1 0:13pm Chief Complaint and Reason for Visit Chief Complaint GI Bleed Reason for Visit Acute kidney injury Altered mental status Anemia Anemia due to blood loss, ac [place] Constipation GI bleed History of stroke Sepsis Encounters Encounter Location(s) Arrival/Admit Date Discharge/Depart Date Provider(s) Registered [facility] Physician June 29, 2019 Elvin Enriquez , Inpatient Group-Surgical 7:45pm Suite Registered [facility] Physician July 01, 2019 [facility]- 10:32am MD Luis Enrique Recent Diagnosis Onset Date Acute kidney injury Altered mental status Anemia Anemia due to blood loss, acute Constipation GI bleed History of stroke Sepsis Assessments Diagnosis Onset Date Resolution Status Acute kidney injury acute Altered mental status acute Anemia acute Anemia due to blood loss, acute acute Constipation acute GI bleed acute History of stroke acute Sepsis acute Functional Status No Functional Status information available Goals Acute Goals Nursing Diagnosis: Knowledge Deficit D isease/Condition Goal(s): Education of di sease process Instruction(s): Follow provider p bhargav/instructions (See attached discharge education) Follow/up with primary care provider as instructed in discharge packet Immunizations Immunization Event Not Given Dose Bobbin Winder Tender Lot Number Vac cine Date Reason Number Informatio n Statement (VIS) Deta il Tetanus, September [id number] Diphtheria (Td) 2017 Mental Status No Mental Status Information Available Medical Equipment No Medical Equipment Information available Insurance Providers Guarantor Shakira Norman Address [address] [place] [address] Contact Info. Home Phone: Payer Policy Id Coverage Id Subscriber's Subscriber Id Effective E xpiration Name Date Date Kassy Villarreal [id number] Card Program 269 [id number] Out Medicare [id number] August Self Pay Self N/A Plan of Treatment Future Tests Future scheduled test information is unavailable Pending Tests Pending diagnostic test information is unavailable Future Visits Future appointment information is unavailable Referrals to Other Providers Reason for Referral Start Provider Provider Contact Provider Address Referral Date Information Admission to [facility] July [address] Future Procedures Future procedure information is unavailable Future Medications Future medication information is unavailable Patient Instructions Blood Transfusion Anemia Delirium DI for Blood Transfusion How to Prevent Falls Gastrointestinal Bleeding Social History Observation Status Date of Observation Not June 29, 2019 Assigned Sex Female Vital Signs Vital Reading Result Reference Range Collection Date/ Time Height 160.02 cm July 01 6:35am Weight 51.87 kg July 01 6:35am Body Temperature 98.4 [degF] 97.6-99.6 July 01, 2 019 4:00am Heart Rate 125 /min 60-90 July 01, 4:00am Respiratory rate 18 /min 12-July 01, 2 019 4:00am Oxygen saturation by 96 % 95-100 June Pulse oximetry 4:00am BP Systolic 130 mm[Hg] 110-140 July 01, 4:00am BP Diastolic 77 mm[Hg] 60-90 July 01, 4:00am BMI (Body Mass Index) 20.2 kg/m2 July 012018 6:35am
--- NOTE | 2019-07-01 16:35 | Electrocardiograph Report ---
APPROVED REPORT Exam: Resting ECG HR:125 bpm ECG Measurements Heart Rate 125 AXES TN 150 P 59 QRSd 72 QRS -35 QT 288 T188 QTc 415 <Conclusion> Sinus tachycardia with premature atrial complexes Left axis deviation Abnormal ECG Electronically signed by : Marin Lubin, 07/01/2019 16:34:57
--- NOTE | 2019-07-01 16:37 | Electrocardiograph Report ---
APPROVED REPORT Exam: Resting ECG HR:124 bpm ECG Measurements Heart Rate 124 AXES [place] 156 P 87 QRSd 76 QRS -6 QT 308 T120 QTc 442 <Conclusion> Sinus tachycardia Pulmonary disease pattern ST & T wave abnormality, consider lateral ischemia Abnormal ECG Electronically signed by : Marin Lubin, 07/01/2019 16:36:49
--- NOTE | 2019-07-01 16:39 | Electrocardiograph Report ---
APPROVED REPORT Exam: Resting ECG HR:112 bpm ECG Measurements Heart Rate 112 AXES [place] 164 P 70 QRSd 82 QRS 23 QT 346 T82 QTc 472 <Conclusion> Sinus tachycardia Otherwise normal ECG Electronically signed by : Marin Lubin, 07/01/2019 16:39:24
[2019-07-01 18:14] LABS: Hematocrit 35.4 % (37.0-47.0); Hemoglobin 11.4 g/dL (12.2-16.2)
[2019-07-02 07:10] LABS: Anion Gap 19.9 mEq/L (5-15); Calcium 7.4 mg/dL (8.5-10.1)
--- NOTE | 2019-07-02 08:29 | Progress Note ---
Internal Medicine - PN: Subj *Date: 07/02/19 *Time: 08:27 Interval history: Patient is more awake this morning and when I enter the room is actually talking with her daughter. However she tells me she feels quite bad but cannot elaborate on exactly what is making her feel this way. Daughter is at bedside and reports there has been some darkening of her stools. We are still waiting on CBC this morning but hemoglobins have remained stable since her transfusion on the day of admission 2 nights ago. Exam Vital signs and Labs for Last 24 Hours: Temp Pulse Resp BP Pulse Ox 98.7 F 100 H 18 153/69 H 90 L 07/02/19 04:00 07/02/19 04:00 07/02/19 04:00 07/02/19 04:00 07/02/19 04:00 Laboratory Results - last 24 hr 07/01/19 11:24: POC Glucose 191 H 07/01/19 16:56: POC Glucose 189 H 07/01/19 18:06: Hgb 11.4 L, Hct 35.4 L 07/01/19 20:29: POC Glucose 182 H 07/02/19 06:15: Sodium 145, Potassium 2.9 L*, Chloride 112 H, Carbon Dioxide 16 L, Anion Gap 19.9 H, BUN 101 H*, Creatinine 2.78 H, Estimated Creat Clear 12, Es timated GFR 16 L*, Est GFR ( Amer) 20 L D, Glucose 186 H D, Calcium 7.4 L , Troponin I 0.10 H 07/02/19 06:53: POC Glucose 187 H I & O for Last 24 hours: Intake & Output 06/29/19 06/30/19 07/01/19 07/02/19 11:59 11:59 11:59 11:59 Intake Total 397 / 397 1938 / 1938 4340 / 4340 Output Total 700 / 700 600 / 600 Balance 397 / 397 1238 / 1238 3740 / 3740 Weight 114 lb 6 oz 114 lb 6 oz 122 lb 6 oz Microbiology Reports for the Last 24 Hours: Microbiology 06/29/19 14:45 Blood Blood Culture - Preliminary NO GROWTH AFTER 48 HOURS 06/29/19 14:45 Blood Blood Culture - Preliminary NO GROWTH AFTER 48 HOURS Narrative: Patient is awake. She responds to vocal stimulus and will answer a few questions. Lungs are clear. Heart has a regular rate and rhythm. Abdomen is tender in the epigastrium. Bowel sounds are present. Assessment and Plan (1) GI bleed Current visit: Yes Status: Acute Qualifiers: GI bleed type/associated pathology: unspecified gastrointestinal hemorrhage type Qualified Code(s): K92.2 - Gastrointestinal hemorrhage, unspecified Category: Medical Code(s): K92.2 - Gastrointestinal hemorrhage, unspecified (2) Anemia due to blood loss, acute Current visit: Yes Status: Acute Category: Medical Code(s): D62 - Acute posthemorrhagic anemia (3) History of stroke Current visit: Yes Status: Acute Category: Medical Code(s): Z86.73 - Personal history of transient ischemic attack (TIA), and cerebral infarction wi thout residual deficits (4) Acute kidney injury Current visit: Yes Status: Acute Category: Medical Code(s): N17.9 - Acute kidney failure, unspecified (5) Sinus tachycardia Current visit: Yes Status: Acute Category: Medical Code(s): R00.0 - Tachycardia, unspecified - Assessment and plan all Dx Assessment and Plan for all problems:: 1. Continue Protonix and add sucralfate for her GI bleed 2. Add oral metoprolol for her tachycardia 3. Await morning CBC 4. Continue patient on a liquid diet
[2019-07-02 08:31] LABS: Basophils % 0.1 % (0.1-2.0); Lymphocytes # 0.7 K/mm3 (0.7-4.5); Monocytes # 0.6 K/mm3 (0.1-1.0); Neutrophils # 4.8 K/mm3 (1.8-7.8)
[2019-07-02 08:35] LABS: Eosinophils % 0.3 % (0.1-12.0); Hematocrit 30.4 % (37.0-47.0); Lymphocytes % 11.3 % (10-50); Mean Corpuscular HGB Conc 32.9 g/dL (31.8-35.4); Mean Corpuscular Volume 98.6 fl (81-99); Mean Platelet Volume 10.3 fl (7.4-10.4); Neutrophils % 79.2 % (37.0-80.0); Platelet Count 85 K/mm3 (142-424); Red Blood Count 3.08 M/mm3 (4.20-5.40); Red Cell Distribution Width 15.5 % (11.5-17.5); White Blood Count 6.1 K/mm3 (4.8-10.8)
[2019-07-02 18:22] LABS: Hematocrit 28.6 % (37.0-47.0); Hemoglobin 9.2 g/dL (12.2-16.2)
[2019-07-03 06:36] LABS: Basophils % 0.1 % (0.1-2.0); Eosinophils % 0.3 % (0.1-12.0); Hemoglobin 8.5 g/dL (12.2-16.2); Lymphocytes # 0.8 K/mm3 (0.7-4.5); Lymphocytes % 11.3 % (10-50); Mean Corpuscular HGB Conc 31.4 g/dL (31.8-35.4); Mean Corpuscular Volume 101.9 fl (81-99); Mean Platelet Volume 9.5 fl (7.4-10.4); Monocytes # 0.6 K/mm3 (0.1-1.0); Neutrophils # 5.8 K/mm3 (1.8-7.8); Neutrophils % 80.2 % (37.0-80.0); Platelet Count 85 K/mm3 (142-424); Red Blood Count 2.67 M/mm3 (4.20-5.40); Red Cell Distribution Width 15.8 % (11.5-17.5); White Blood Count 7.2 K/mm3 (4.8-10.8)
[2019-07-03 06:38] LABS: Hematocrit 27.2 % (37.0-47.0)
[2019-07-03 06:46] LABS: Anion Gap 14.9 mEq/L (5-15)
--- NOTE | 2019-07-03 07:58 | Progress Note ---
Internal Medicine - PN: Subj *Date: 07/03/19 *Time: 07:56 Interval history: Patient claims she is feeling a little better this morning. Her H&H decreased yesterday morning and then once again in the evening and has dropped further this morning. While she did pass some dark stools yesterday she has not had any overnight. I did place her back on a liquid only diet Exam Vital signs and Labs for Last 24 Hours: Temp Pulse Resp BP Pulse Ox 98.5 F 88 18 131/64 96 07/03/19 04:00 07/03/19 04:00 07/03/19 04:00 07/03/19 04:00 07/03/19 04:00 Laboratory Results - last 24 hr 07/02/19 06:15: WBC 6.1 D, RBC 3.08 L, Hgb 10.0 L D, Hct 30.4 L, MCV 98.6, MCH 32.5 H, MCHC 32.9, RDW 15.5, Plt Count 85 L, MPV 10.3, Neut % (Auto) 79.2, Lymph % (Auto) 11.3, [place] % (Auto) 9.0, Eos % (Auto) 0.3, Baso % (Auto) 0.1, Neut # (Auto) 4.8, Lymph # (Auto) 0.7, [place] # (Auto) 0.6, Eos # (Auto) 0.0, Baso # (Auto) 0.0 07/02/19 12:05: POC Glucose 138 H 07/02/19 17:08: POC Glucose 181 H 07/02/19 18:03: Hgb 9.2 L, Hct 28.6 L 07/02/19 20:38: POC Glucose 148 H 07/03/19 05:57: POC Glucose 140 H 07/03/19 06:20: WBC 7.2, RBC 2.67 L, Hgb 8.5 L, Hct 27.2 L, MCV 101.9 H, MCH 32.0 H, MCHC 31.4 L, RDW 15.8, Plt Count 85 L, MPV 9.5, Neut % (Auto) 80.2 H, Lymph % (Auto) 11.3, [place] % (Auto) 8.0, Eos % (Auto) 0.3, Baso % (Auto) 0.1, Neut # (Auto) 5.8, Lymph # (Auto) 0.8, [place] # (Auto) 0.6, Eos # (Auto) 0.0, Baso # (Auto) 0.0 07/03/19 06:20: Sodium 146 H, Potassium 2.9 L*, Chloride 116 H, Carbon Dioxide 18 L, Anion Gap 14.9, BUN 83 H, Creatinine 2.26 H, Estimated Creat Clear 15, Estimated GFR 20 L, Est GFR ( Amer) 25 L D, Glucose 141 H, Calcium 8.0 L 07/03/19 07:25: Crossmatch (AHG) See Detail I & O for Last 24 hours: Intake & Output 06/30/19 07/01/19 07/02/19 07/03/19 11:59 11:59 11:59 11:59 Intake Total 397 / 397 1938 / 1938 4500 / 4500 1766 / 1766 Output Total 700 / 700 600 / 600 400 / 400 Balance 397 / 397 1238 / 1238 3900 / 3900 1366 / 1366 Weight 114 lb 6 oz 114 lb 6 oz 122 lb 6 oz 119 lb 8 oz Narrative: Patient is laying in bed and appears comfortable. She is pleasant and answers questions appropriately. Lungs are clear. Heart has a regular rate and rhythm. Abdomen has epigastric tenderness to palpation. Potassium was 2.9, hemoglobin is dropped further to 8.5 Assessment and Plan (1) GI bleed Current visit: Yes Status: Acute Qualifiers: GI bleed type/associated pathology: unspecified gastrointestinal hemorrhage type Qualified Code(s): K92.2 - Gastrointestinal hemorrhage, unspecified Category: Medical Code(s): K92.2 - Gastrointestinal hemorrhage, unspecified (2) Anemia due to blood loss, acute Current visit: Yes Status: Acute Category: Medical Code(s): D62 - Acute posthemorrhagic anemia (3) History of stroke Current visit: Yes Status: Acute Category: Medical Code(s): Z86.73 - Personal history of transient ischemic attack (TIA), and cerebral infarction without residual deficits (4) Acute kidney injury Current visit: Yes Status: Acute Category: Medical Code(s): N17.9 - Acute kidney failure, unspecified (5) Sinus tachycardia Current visit: Yes Status: Acute Category: Medical Code(s): R00.0 - Tachycardia, unspecified - Assessment and plan all Dx Assessment and Plan for all problems:: 1. Proceed with transfusion of 2 units of packed red blood cells due to anticipated further blood loss 2. Restart Protonix drip, continue Carafate 3. We will notify surgical service of the need for transfusion. I do not believe she is in an urgent need of the EGD but will need endoscopy prior to discharge
[2019-07-03 17:30] LABS: Hematocrit 35.6 % (37.0-47.0)
[2019-07-03 17:34] LABS: Hemoglobin 11.7 g/dL (12.2-16.2)
[2019-07-04 05:31] LABS: Basophils % 0.1 % (0.1-2.0); Eosinophils # 0.1 K/mm3 (0.0-0.4); Hematocrit 37.8 % (37.0-47.0); Hemoglobin 12.1 g/dL (12.2-16.2); Lymphocytes # 0.9 K/mm3 (0.7-4.5); Lymphocytes % 8.7 % (10-50); Mean Corpuscular Volume 93.3 fl (81-99); Mean Platelet Volume 8.7 fl (7.4-10.4); Monocytes # 0.9 K/mm3 (0.1-1.0); Monocytes % 8.8 % (1.7-9.3); Neutrophils # 8.7 K/mm3 (1.8-7.8); Neutrophils % 81.4 % (37.0-80.0); Platelet Count 76 K/mm3 (142-424); Red Blood Count 4.05 M/mm3 (4.20-5.40); Red Cell Distribution Width 18.4 % (11.5-17.5); White Blood Count 10.6 K/mm3 (4.8-10.8)
[2019-07-04 05:37] LABS: Anion Gap 16.4 mEq/L (5-15); Calcium 8.3 mg/dL (8.5-10.1)
--- NOTE | 2019-07-04 06:55 | Progress Note ---
Internal Medicine - PN: Subj *Date: 07/04/19 *Time: 06:51 Interval history: Patient tells me she is feeling better. Nursing staff reports patient had 5 loose stools overnight that were brown in color. Patient received 2 units of packed red blood cells with robust response once again. Exam Vital signs and Labs for Last 24 Hours: Temp Pulse Resp BP Pulse Ox 97.9 F 79 18 123/99 H 100 07/04/19 00:00 07/04/19 00:00 07/04/19 00:00 07/04/19 00:00 07/04/19 00:00 Laboratory Results - last 24 hr 07/03/19 07:25: Blood Type A Positive, Antibody Screen Negative, Crossmatch (AHG) See Detail 07/03/19 11:03: POC Glucose 144 H 07/03/19 16:18: POC Glucose 138 H 07/03/19 17:28: Hgb 11.7 L D, Hct 35.6 L 07/03/19 20:34: POC Glucose 169 H 07/04/19 05:18: WBC 10.6 D, RBC 4.05 L D, Hgb 12.1 L, Hct 37.8, MCV 93.3, MCH 29.8, MCHC 32.0, RDW 18.4 H, Plt Count 76 L, MPV 8.7, Neut % (Auto) 81.4 H, Lymph % (Auto) 8.7 L, [place] % (Auto) 8.8, Eos % (Auto) 1.0, Baso % (Auto) 0.1, Neut # (Auto) 8.7 H, Lymph # (Auto) 0.9, [place] # (Auto) 0.9, Eos # (Auto) 0.1, Baso # (Auto) 0.0 07/04/19 05:18: Sodium 146 H, Potassium 3.4 L, Chloride 116 H, Carbon Dioxide 17 L, Anion Gap 16.4 H, BUN 58 H D, Creatinine 1.95 H, Estimated Creat Clear 17, Estimated GFR 24 L, Est GFR ( Amer) 29 L, Glucose 149 H, Calcium 8.3 L 07/04/19 05:25: POC Glucose 139 H I & O for Last 24 hours: Intake & Output 07/01/19 07/02/19 07/03/19 07/04/19 11:59 11:59 11:59 11:59 Intake Total 1937 / 1937 4500 / 4500 2313 / 2348 2237.5 / 2237.5 Output Total 700 / 700 600 / 600 400 / 400 Balance 1238 / 1238 3900 / 3900 1912 2237.5 / 2237.5 Weight 114 lb 6 oz 122 lb 6 oz 119 lb 8 oz 119 lb 8 oz Narrative: Patient looks well and is more verbal today. Lungs have some faint wheezing. Heart has a regular rate and rhythm. Abdomen is soft with mild epigastric tenderness that has improved from yesterday Assessment and Plan (1) GI bleed Current visit: Yes Status: Acute Qualifiers: GI bleed type/associated pathology: unspecified gastrointestinal hemorrhage type Qualified Code(s): K92.2 - Gastrointestinal hemorrhage, unspecified Category: Medical Code(s): K92.2 - Gastrointestinal hemorrhage, unspecified (2) Anemia due to blood loss, acute Current visit: Yes Status: Acute Category: Medical Code(s): D62 - Acute posthemorrhagic anemia (3) History of stroke Current visit: Yes Status: Acute Category: Medical Code(s): Z86.73 - Personal history of transient ischemic attack (TIA), and cerebral infarction without residual deficits (4) Acute kidney injury Current visit: Yes Status: Acute Category: Medical Code(s): N17.9 - Acute kidney failure, unspecified (5) Sinus tachycardia Current visit: Yes Status: Acute Category: Medical Code(s): R00.0 - Tachycardia, unspecified - Assessment and plan all Dx Assessment and Plan for all problems:: Continue honey thickened liquids today. Because of rebleeding I think patient should proceed with endoscopy. I will speak with Dr. Hogue today about possibly getting endoscopy done tomorrow. Continue physical therapy while hospitalized. Patient will transition to [facility] facility at discharge
[2019-07-05 06:28] LABS: Anion Gap 16.4 mEq/L (5-15); Calcium 8.7 mg/dL (8.5-10.1)
[2019-07-05 06:31] LABS: Basophils % 0.1 % (0.1-2.0); Eosinophils # 0.1 K/mm3 (0.0-0.4); Hemoglobin 12.2 g/dL (12.2-16.2); Lymphocytes % 8.4 % (10-50); Mean Corpuscular HGB Conc 32.2 g/dL (31.8-35.4); Mean Corpuscular Volume 94.7 fl (81-99); Mean Platelet Volume 8.9 fl (7.4-10.4); Monocytes # 0.8 K/mm3 (0.1-1.0); Monocytes % 7.3 % (1.7-9.3); Neutrophils # 9.4 K/mm3 (1.8-7.8); Neutrophils % 83.2 % (37.0-80.0); Platelet Count 101 K/mm3 (142-424); Red Blood Count 4.01 M/mm3 (4.20-5.40); Red Cell Distribution Width 18.1 % (11.5-17.5); White Blood Count 11.3 K/mm3 (4.8-10.8)
--- NOTE | 2019-07-05 06:42 | Progress Note ---
Subjective Patient reports: feels better Exam Vital signs and Labs for Last 24 Hours: Temp Pulse Resp BP Pulse Ox 98.0 F 70 20 112/56 L 96 07/05/19 04:00 07/05/19 04:00 07/05/19 04:00 07/05/19 04:00 07/05/19 04:00 Laboratory Results - last 24 hr 07/04/19 11:01: POC Glucose 136 H 07/04/19 14:00: Stl Aeromonas (PCR) Not detected, Stl C. cayetanensis PCR Not detected, Stool Rotavirus (PCR) Not detected, Stl Adenov F 40/41 PCR Not detected, Stool Astrovirus (PCR) Not detected, Stool Campylobacter PCR Not detected, Stl C.difficile Tox PCR Not detected, Stool Cryptosporidium PCR Not detected, Stl E.coli Shiga Tox PCR Not detected, Stool E coli O157 PCR Not detected, Stl Enterotoxigenic E PCR Not detected, Stool EPEC (PCR) Not detected, Stool EAEC (PCR) Not detected, Stl E. histolytica PCR Not detected, Stool Giardia Lamblia PCR Not detected, Stool Salmonella PCR Not detected, Stool Sapovirus (PCR) Not detected, Stl P. shigelloides PCR Not detected, Stl Shigella/EIEC PCR Not detected, St Y.enterocolitica PCR Not detected, Stool Vibrio (PCR) Not detected, Stl Vibrio cholerae PCR Not detected, Stl Norovirus GI/GII PCR Not detected 07/04/19 17:07: POC Glucose 122 H 07/04/19 20:34: POC Glucose 117 H 07/05/19 05:22: POC Glucose 98 07/05/19 06:10: WBC 11.3 H, RBC 4.01 L, Hgb 12.2, Hct 38.0, MCV 94.7, MCH 30.5, MCHC 32.2, RDW 18.1 H, Plt Count 101 L D, MPV 8.9, Neut % (Auto) 83.2 H, Lymph % (Auto) 8.4 L, [place] % (Auto) 7.3, Eos % (Auto) 1.0, Baso % (Auto) 0.1, Neut # (Auto) 9.4 H, Lymph # (Auto) 1.0, [place] # (Auto) 0.8, Eos # (Auto) 0.1, Baso # (Auto) 0.0 07/05/19 06:10: Sodium 146 H, Potassium 3.4 L, Chloride 114 H, Carbon Dioxide 19 L, Anion Gap 16.4 H, BUN 46 H, Creatinine 1.72 H, Estimated Creat Clear 19, Estimated GFR 28 L, Est GFR ( Amer) 34 L, Glucose 99, Calcium 8.7 I & O for Last 24 hours: Intake & Output 07/02/19 07/03/19 07/04/19 07/05/19 11:59 11:59 11:59 11:59 Intake Total 4500 / 4500 2313 / 2348 2477.5 / 2477.5 480 / 480 Output Total 600 / 600 400 / 400 Balance 3900 / 3900 1913 / 1948 2477.5 / 2477.5 480 / 480 Weight 122 lb 6 oz 119 lb 8 oz 119 lb 8 oz 115 lb 5 oz Microbiology Reports for the Last 24 Hours: Microbiology 06/29/19 14:45 Blood Blood Culture - Final NO GROWTH AFTER 5 DAYS 06/29/19 14:45 Blood Blood Culture - Final NO GROWTH AFTER 5 DAYS - Constitutional no acute distress - *Routine Respiratory Exam Absent: respiratory distress - *Routine Cardiovascular Exam Present: RRR - *Routine Neurological Exam Present: alert Progress Note: A&P (1) GI bleed Status: Acute Assessment and plan: Stable status post 4 units packed red blood cells with no sign of ongoing hemorrhage. EGD this morning Current Visit: Yes (2) Anemia due to blood loss, acute Status: Acute Current Visit: Yes (3) History of stroke Status: Acute Current Visit: Yes (4) Acute kidney injury Status: Acute Current Visit: Yes (5) Sinus tachycardia Status: Acute Current Visit: Yes
--- NOTE | 2019-07-05 07:08 | Progress Note ---
[facility] Anesthesia Checklist - Patient Identification Patient Identification: Arm Band, Verbal (Name & ) - Structural Data Admitted From: Inpatient Planned Operative Procedure/s: EGD Consent for Planned Operative Procedure(s) Verified: Yes Verified Documents: Surgical Consent, History and Physical - NPO Status Verified Time NPO: 21:00 - Chart Verification Results Verified: CBC, BMP - Additional verifications Anesthesia Reactions: No Hx Blood Transfusions: Yes - Airway Assessment C-Spine Mobility Assessed: Yes (limited neck ROM) TMJ Mobility Assessed: Yes Dentition: Edentulous - Neurological Assessment Level of Consciousness: Awake, Alert, Appropriate, Follows Commands Hx Seizures: No Numbness or tingling in extremities: No - Anesthesia Plan Anesthesia Risk discussed: Yes Anesthesia Plan: Verified ASA Class: III Anesthesia Type: [facility] History I have reviewed the patient's past medical history: Yes Medical History: Reports:: Cerebrovascular Accident, Hyperlipidemia, Hypertension, Renal Insufficiency Denies:: Cancer, Diabetes Mellitus Type 1, Diabetes Mellitus Type 2, MRSA *Have you ever received a pneumonia vaccine?: Yes *Have you received a flu vaccine this season?: No Other Medical History: Reports: Anemia, Arthritis, Cataracts Anesthesia experience/problems:: none Other Surgeries: Yes: Hysterectomy-Total Amputation: No Fractures: No - *Social History Educational Level: Completed High School Smoking Status: Never smoker Alcohol Intake: never Substance Use Type: denies use *Occupational Status:: retired Household Members: spouse *Travel in the last 8 weeks: None Family Hx:: Cancer, Stroke
--- NOTE | 2019-07-05 07:18 | Procedure Note ---
- Procedure: Date: 07/05/19 Procedure Performed:: Esophagogastroduodenoscopy with biopsy Indications:: Upper gastrointestinal hemorrhage Performing Provider:: Elvin Enriquez MD Referring Provider:: Dr. Zhang Sedation:: Monitored anesthesia care Procedure:: After informed consent was obtained the patient was taken to the endoscopy suite. Sedation ensued after the patient was transferred to the left lateral decubitus position. Pulse, blood pressure, and oxygen saturation were monitored throughout the procedure. The endoscope was advanced beyond the duodenal bulb. Retroflexion within the gastric lumen was accomplished. The gastroscope was carefully removed and the patient was transferred to recovery in stable condition. Please see "findings" and "specimens" below for detail. Findings:: Mild Schatzki ring Large complex hiatal hernia Patchy gastritis Duodenitis with increasing severity of inflammation distally Complex lobulated ulcerated/friable small bowel mucosa (distal duodenal) Specimens:: Biopsies of lobulated ulcerated small bowel mucosa Antral biopsy Recommendations:: Follow-up pending pathology Continue proton pump inhibition Complications:: No immediate Estimated blood obtained (mL): 1
--- NOTE | 2019-07-05 07:44 | Progress Note ---
Internal Medicine - PN: Subj *Date: 07/05/19 *Time: 07:41 Interval history: Patient has completed her EGD by Dr. Hogue. Please see his report for full details. Patient has very friable small intestinal mucosa. She has a large hiatal hernia. She continues to cough this morning. Exam Vital signs and Labs for Last 24 Hours: Temp Pulse Resp BP Pulse Ox 98.0 F 70 20 112/56 L 96 07/05/19 04:00 07/05/19 04:00 07/05/19 04:00 07/05/19 04:00 07/05/19 04:00 Laboratory Results - last 24 hr 07/04/19 11:01: POC Glucose 136 H 07/04/19 14:00: Stl Aeromonas (PCR) Not detected, Stl C. cayetanensis PCR Not detected, Stool Rotavirus (PCR) Not detected, Stl Adenov F 40/41 PCR Not detected, Stool Astrovirus (PCR) Not detected, Stool Campylobacter PCR Not detected, Stl C.difficile Tox PCR Not detected, Stool Cryptosporidium PCR Not detected, Stl E.coli Shiga Tox PCR Not detected, Stool E coli O157 PCR Not detected, Stl Enterotoxigenic E PCR Not detected, Stool EPEC (PCR) Not detected, Stool EAEC (PCR) Not detected, Stl E. histolytica PCR Not detected, Stool Giardia Lamblia PCR Not detected, Stool Salmonella PCR Not detected, Stool Sapovirus (PCR) Not detected, Stl P. shigelloides PCR Not detected, Stl Shigella/EIEC PCR Not detected, St Y.enterocolitica PCR Not detected, Stool Vibrio (PCR) Not detected, Stl Vibrio cholerae PCR Not detected, Stl Norovirus GI/GII PCR Not detected 07/04/19 17:07: POC Glucose 122 H 07/04/19 20:34: POC Glucose 117 H 07/05/19 05:22: POC Glucose 98 07/05/19 06:10: WBC 11.3 H, RBC 4.01 L, Hgb 12.2, Hct 38.0, MCV 94.7, MCH 30.5, MCHC 32.2, RDW 18.1 H, Plt Count 101 L D, MPV 8.9, Neut % (Auto) 83.2 H, Lymph % (Auto) 8.4 L, [place] % (Auto) 7.3, Eos % (Auto) 1.0, Baso % (Auto) 0.1, Neut # (Auto) 9.4 H, Lymph # (Auto) 1.0, [place] # (Auto) 0.8, Eos # (Auto) 0.1, Baso # (Auto) 0.0 07/05/19 06:10: Sodium 146 H, Potassium 3.4 L, Chloride 114 H, Carbon Dioxide 19 L, Anion Gap 16.4 H, BUN 46 H, Creatinine 1.72 H, Estimated Creat Clear 19, Estimated GFR 28 L, Est GFR ( Amer) 34 L, Glucose 99, Calcium 8.7 I & O for Last 24 hours: Intake & Output 07/02/19 07/03/19 07/04/19 07/05/19 11:59 11:59 11:59 11:59 Intake Total 4500 / 4500 2313 / 2348 2477.5 / 2477.5 480 / 480 Output Total 600 / 600 400 / 400 Balance 3900 / 3900 1913 / 1948 2477.5 / 2477.5 480 / 480 Weight 122 lb 6 oz 119 lb 8 oz 119 lb 8 oz 115 lb 5 oz Microbiology Reports for the Last 24 Hours: Microbiology 06/29/19 14:45 Blood Blood Culture - Final NO GROWTH AFTER 5 DAYS 06/29/19 14:45 Blood Blood Culture - Final NO GROWTH AFTER 5 DAYS Narrative: Patient looks comfortable. Lungs have diffuse rhonchi. Heart has a regular rate and rhythm. Abdomen is soft and tender to palpation Assessment and Plan (1) GI bleed Current visit: Yes Status: Acute Qualifiers: GI bleed type/associated pathology: unspecified gastrointestinal hemorrhage type Qualified Code(s): K92.2 - Gastrointestinal hemorrhage, unspecified Category: Medical Code(s): K92.2 - Gastrointestinal hemorrhage, unspecified (2) Anemia due to blood loss, acute Current visit: Yes Status: Acute Category: Medical Code(s): D62 - Acute posthemorrhagic anemia (3) History of stroke Current visit: Yes Status: Acute Category: Medical Code(s): Z86.73 - Personal history of transient ischemic attack (TIA), and cerebral infarction without residual deficits (4) Acute kidney injury Current visit: Yes Status: Acute Category: Medical Code(s): N17.9 - Acute kidney failure, unspecified (5) Sinus tachycardia Current visit: Yes Status: Acute Category: Medical Code(s): R00.0 - Tachycardia, unspecified (6) Cough Current visit: Yes Status: Acute Category: Medical Code(s): R05 - Cough - Assessment and plan all Dx Assessment and Plan for all problems:: 1. Reinstitute diet and continue IV Protonix twice daily 2. Observe CBC over the next 24 hours. If no significant drop in H&H patient is a candidate for discharge 3. Due to persistent cough and abnormal lung exam get a chest x-ray today
[2019-07-06 08:00] LABS: Basophils % 0.1 % (0.1-2.0); Eosinophils % 0.2 % (0.1-12.0); Hematocrit 37.9 % (37.0-47.0); Hemoglobin 12.3 g/dL (12.2-16.2); Lymphocytes # 0.7 K/mm3 (0.7-4.5); Lymphocytes % 8.1 % (10-50); Mean Corpuscular HGB Conc 32.5 g/dL (31.8-35.4); Mean Corpuscular Volume 93.3 fl (81-99); Monocytes # 0.6 K/mm3 (0.1-1.0); Monocytes % 6.4 % (1.7-9.3); Neutrophils # 7.4 K/mm3 (1.8-7.8); Neutrophils % 85.2 % (37.0-80.0); Platelet Count 131 K/mm3 (142-424); Red Blood Count 4.06 M/mm3 (4.20-5.40); Red Cell Distribution Width 17.6 % (11.5-17.5); White Blood Count 8.7 K/mm3 (4.8-10.8)
--- NOTE | 2019-07-06 08:11 | Progress Note ---
Internal Medicine - PN: Subj *Date: 07/06/19 *Time: 08:07 Interval history: Patient underwent successful EGD yesterday which showed friable intestinal mucosa. Patient had her pured diet with honey thickened liquids restarted and has tolerated this well. The cough that she had previously resolved yesterday but has now returned this morning. Chest x-ray performed yesterday showed no sign of pneumonia Exam Vital signs and Labs for Last 24 Hours: Temp Pulse Resp BP Pulse Ox 98.1 F 83 22 123/67 96 07/05/19 20:00 07/05/19 20:00 07/05/19 20:00 07/05/19 20:00 07/05/19 20:00 Laboratory Results - last 24 hr 07/05/19 11:24: POC Glucose 96 07/05/19 16:05: POC Glucose 109 07/05/19 20:11: POC Glucose 136 H 07/06/19 06:05: POC Glucose 111 H 07/06/19 07:50: WBC 8.7, RBC 4.06 L, Hgb 12.3, Hct 37.9, MCV 93.3, MCH 30.3, MCHC 32.5, RDW 17.6 H, Plt Count 131 L D, MPV 9.0, Neut % (Auto) 85.2 H, Lymph % (Auto) 8.1 L, [place] % (Auto) 6.4, Eos % (Auto) 0.2, Baso % (Auto) 0.1, Neut # (Auto) 7.4, Lymph # (Auto) 0.7, [place] # (Auto) 0.6, Eos # (Auto) 0.0, Baso # (Auto) 0.0 I & O for Last 24 hours: Intake & Output 07/03/19 07/04/19 07/05/19 07/06/19 11:59 11:59 11:59 11:59 Intake Total 2313 / 2348 2477.5 / 2477.5 480 / 480 300 / 300 Output Total 400 / 400 Balance 1912 / 1947 2477.5 / 2477.5 480 / 480 300 / 300 Weight 119 lb 8 oz 119 lb 8 oz 115 lb 5 oz 116 lb 7 oz Narrative: Patient appears comfortable this morning she does not require supplemental oxygen. Lungs have some rhonchi. Heart has a regular rate and rhythm. Abdomen is soft and without epigastric tenderness today Assessment and Plan (1) GI bleed Current visit: Yes Status: Resolved Qualifiers: GI bleed type/associated pathology: unspecified gastrointestinal hemorrhage type Qualified Code(s): K92.2 - Gastrointestinal hemorrhage, unspecified Category: Medical Code(s): K92.2 - Gastrointestinal hemorrhage, unspecified (2) Anemia due to blood loss, acute Current visit: Yes Status: Acute Category: Medical Code(s): D62 - Acute posthemorrhagic anemia (3) History of stroke Current visit: Yes Status: Acute Category: Medical Code(s): Z86.73 - Personal history of transient ischemic attack (TIA), and cerebral infarction without residual deficits (4) Acute kidney injury Current visit: Yes Status: Resolved Category: Medical Code(s): N17.9 - Acute kidney failure, unspecified (5) Sinus tachycardia Current visit: Yes Status: Resolved Category: Medical Code(s): R00.0 - Tachycardia, unspecified (6) Cough Current visit: Yes Status: Resolved Category: Medical Code(s): R05 - Cough - Assessment and plan all Dx Assessment and Plan for all problems:: Discharged to [facility] today to rehabilitate. Long-term plan is to return home
[2019-07-06 08:14] LABS: Anion Gap 17.1 mEq/L (5-15); Calcium 8.3 mg/dL (8.5-10.1)
--- NOTE | 2019-07-06 08:16 | Progress Note ---
Subjective Patient reports: no new complaints Exam Vital signs and Labs for Last 24 Hours: Temp Pulse Resp BP Pulse Ox 98.1 F 83 22 123/67 96 07/05/19 20:00 07/05/19 20:00 07/05/19 20:00 07/05/19 20:00 07/05/19 20:00 Laboratory Results - last 24 hr 07/05/19 11:24: POC Glucose 96 07/05/19 16:05: POC Glucose 109 07/05/19 20:11: POC Glucose 136 H 07/06/19 06:05: POC Glucose 111 H 07/06/19 07:50: WBC 8.7, RBC 4.06 L, Hgb 12.3, Hct 37.9, MCV 93.3, MCH 30.3, MCHC 32.5, RDW 17.6 H, Plt Count 131 L D, MPV 9.0, Neut % (Auto) 85.2 H, Lymph % (Auto) 8.1 L, [place] % (Auto) 6.4, Eos % (Auto) 0.2, Baso % (Auto) 0.1, Neut # (Auto) 7.4, Lymph # (Auto) 0.7, [place] # (Auto) 0.6, Eos # (Auto) 0.0, Baso # (Auto) 0.0 I & O for Last 24 hours: Intake & Output 07/03/19 07/04/19 07/05/19 07/06/19 11:59 11:59 11:59 11:59 Intake Total 2313 / 2348 2477.5 / 2477.5 480 / 480 300 / 300 Output Total 400 / 400 Balance 1912 / 194 2477.5 / 2477.5 480 / 480 300 / 300 Weight 119 lb 8 oz 119 lb 8 oz 115 lb 5 oz 116 lb 7 oz - Constitutional no acute distress - *Routine Respiratory Exam Absent: respiratory distress - *Routine Cardiovascular Exam Present: RRR Progress Note: A&P (1) GI bleed Status: Acute Assessment and plan: likely secondary to severe ulcerative duodenitis...currently stable with no sign of ongoing blood loss. continue PPI f/u pending pathology Current Visit: Yes (2) Anemia due to blood loss, acute Status: Acute Current Visit: Yes (3) History of stroke Status: Acute Current Visit: Yes (4) Acute kidney injury Status: Acute Current Visit: Yes (5) Sinus tachycardia Status: Acute Current Visit: Yes (6) Cough Status: Acute Current Visit: Yes
--- NOTE | 2019-07-06 08:17 | Discharge Summary ---
General - General Admission date:: 06/29/19 Discharge date: 07/06/19 HPI HPI: 88-year-old female with history of TIA and hypertension presented to the emergency department after she was found to be confused early yesterday morning. Her noticed that around 3:30 AM she did not seem to be acting like herself. He contacted her daughter. Her daughter came and assessed her and noticed that not only was the patient confused but she began having frequent black stools which is atypical for the patient. While she does take iron for chronic anemia she usually has a bowel movement every 2 to 3 days. The daughter recognized that the stool appeared as if there was blood in it and also "smelled as if there was blood in it". That was when the patient was brought to the hospital. Patient underwent evaluation and was found to be anemic. She was admitted with a diagnosis of an upper GI bleed and transfused 2 units of packed red blood cells. Overnight patient had a robust response to the 2 units of packed red blood cells with hemoglobin rising from 7.8 to above 13. Patient has been on a Protonix drip since admission. This morning she remains confused and minimally interactive with both myself and family. History is taken completely from the family. Hospital Course Hospital Course: Patient was admitted for her GI bleed and had 2 units of packed red blood cells transfused on admission with excellent response. Stools remains dark for several days but for the initial 48 hours after transfusion her H&H remained elevated. She had reached the point where we were checking H&H every 24 hours when her hemoglobin began to decline again. Stool frequency increased.. Because of the acuity of her GI bleed surgical service has been consulted on admission and decision was made to treat conservatively initially. When there was evidence of rebleeding requiring an additional transfusion of 2 units of packed red blood cells on July 03 decision was made to proceed with EGD. On July 05 patient underwent EGD by Dr. Hogue which showed friable intestinal mucosa without active bleeding. Biopsies were taken. After EGD diet was reinitiated. Patient's H&H remained stable and ultimately she was discharged to [facility] on July 06. Discharge hemoglobin was 12.3. Because of the acute blood loss and anemia patient did exhibit mental status changes with confusion on admission however as hospitalization progressed these resolved and patient returned to her baseline mental status. Mental status is average. Patient developed a cough while hospitalized. Initially fluids were stopped when she developed her cough. When cough persisted for more than 24 hours a chest x-ray was performed which showed no pneumonia or evidence of fluid overload. Cough resolved without intervention. Patient has history of stroke for which she has been taking aspirin. This was discontinued while patient was hospitalized. Patient will resume iron supplementation at discharge Objective Vital signs: Temp Pulse Resp BP Pulse Ox 98.1 F 83 22 123/67 96 07/05/19 20:00 07/05/19 20:00 07/05/19 20:00 07/05/19 20:00 07/05/19 20:00 Results Labs on day of discharge: Labs from last 24 hours 07/06/19 07/06/19 07/05/19 07:50 06:05 20:11 WBC 8.7 RBC 4.06 L Hgb 12.3 Hct 37.9 MCV 93.3 MCH 30.3 MCHC 32.5 RDW 17.6 H Plt Count 131 L D MPV 9.0 Neut % (Auto) 85.2 H Lymph % (Auto) 8.1 L [place] % (Auto) 6.4 Eos % (Auto) 0.2 Baso % (Auto) 0.1 Neut # (Auto) 7.4 Lymph # (Auto) 0.7 [place] # (Auto) 0.6 Eos # (Auto) 0.0 Baso # (Auto) 0.0 POC Glucose 111 H 136 H 07/05/19 07/05/19 16:05 11:24 WBC RBC Hgb Hct MCV MCH MCHC RDW Plt Count MPV Neut % (Auto) Lymph % (Auto) [place] % (Auto) Eos % (Auto) Baso % (Auto) Neut # (Auto) Lymph # (Auto) [place] # (Auto) Eos # (Auto) Baso # (Auto) POC Glucose 109 96 DS: Diagnosis - Discharge Diagnosis (1) GI bleed Status: Resolved (2) Anemia due to blood loss, acute Status: Acute (3) History of stroke Status: Acute (4) Acute kidney injury Status: Resolved (5) Sinus tachycardia Status: Resolved (6) Cough Status: Resolved Discharge Plan - Patient Discharge Instructions ACTIVITY: Continue current activity DIET: continue same diet Patient Instructions: Blood Transfusion, Anemia, Delirium, DI for Blood Transfusion, How to Prevent Falls, Gastrointestinal Bleeding - Follow up Plan Disposition: Xfer [facility] Home Medications: Home Medications Medication Instructions Recorded Confirmed Type Atorvastatin Calcium [Atorvastatin 10 mg PO HS 06/30/19 06/30/19 History 10mg Tab] Citalopram Hydrobromide 20 mg PO DAILY 06/30/19 06/30/19 History [Citalopram HBr] Clopidogrel Bisulfate [Plavix 75mg 75 mg PO DAILY 06/30/19 06/30/19 History Tab] carvediloL [Carvedilol 25mg Tab] 25 mg PO BID 06/30/19 06/30/19 History lisinopriL [Lisinopril 10mg Tab] 10 mg PO DAILY 06/30/19 06/30/19 History Trazodone HCl 50 mg PO HS 07/02/19 07/02/19 History Pantoprazole Sodium [Protonix 40mg 40 mg PO BID 30 Days #60 tab 07/06/19 Rx tablet] Prescriptions/Medication Reconciliation: New Pantoprazole Sodium [Protonix 40mg tablet] 40 mg PO BID 30 Days #60 tab Continued lisinopriL [Lisinopril 10mg Tab] 10 mg PO DAILY Citalopram Hydrobromide [Citalopram HBr] 20 mg PO DAILY carvediloL [Carvedilol 25mg Tab] 25 mg PO BID Atorvastatin Calcium [Atorvastatin 10mg Tab] 10 mg PO HS Trazodone HCl 50 mg PO HS Discontinued Clopidogrel Bisulfate [Plavix 75mg Tab] 75 mg PO DAILY - Problem Reconciliation Problems Reviewed?: Yes
[2019-07-06 11:46] LABS: Lymphocytes % 3 % (10-50); Monocytes % 4 % (2-9); Neutrophils % 89 % (42-76); Total Cells Counted 100
[2019-07-06 11:47] LABS: RBC Morphology Normal
== END 2019-07-06 12:28 | DRG 378 ==
LOC: ER 14:40 → 2ND 14:40 → OBSVTOIN 19:45 → 2ND 19:45
PROVIDERS: ADMIT Emergency Medicine; ATTEND Family Medicine
CPT/HCPCS: 36415; 70450; 71010; 71045; 71250; 74176; 80048; 80053; 81001; 82272; 82962; 83605; 83735; 84484; 85007; 85014; 85018; 85025; 85610; 86850; 87040; 87507; 90686; 90732; 92610; 93005; 96365; 96366; 96375; 97110; 97163; 97530; 99285; G0328; J2405; P9016